=== PATIENT | male | born 1970 | race Two or more races ===

== ENCOUNTER 2023-04-09 05:00 | Emergency (ER) | payer BC ==
[2023-04-09] MEDS ORDERED: Oxymetazoline 0.05% Nasal Spray 30 ML Bottle NAS ONE (05:21)
[2023-04-09 06:02] LABS: BASOPHILS PERCENT AUTO 0.5 % (0.0-1.0); EOSINOPHILS PERCENT AUTO 0.3 % (0.0-6.0); HEMATOCRIT 32.4 % (42.0-52.0); HEMOGLOBIN 9.8 gm/dl (14.0-18.0); IMMATURE GRAN ABSOLUTE AUTO 0.34 K/mm3 (0.00-0.05); IMMATURE GRAN PERCENT AUTO 8.9 % (0.0-0.4); LYMPHOCYTES ABSOLUTE AUTO 2.4 K/mm3 (1.0-4.8); LYMPHOCYTES PERCENT AUTO 61.7 % (24.0-44.0); MEAN CORPUSCULAR HGB CONC 30.2 g/dl (32.0-36.0); MEAN CORPUSCULAR VOLUME 99.1 fl (83.0-99.0); MONOCYTES ABSOLUTE AUTO 0.2 K/mm3 (0.0-0.8); MONOCYTES PERCENT AUTO 6.3 % (0.0-8.0); NEUTROPHILS ABSOLUTE AUTO 0.9 K/mm3 (1.8-7.7); NEUTROPHILS PERCENT AUTO 22.3 % (41.0-71.0); NRBC ABSOLUTE 0.06 (0.00-0.02); NRBC PERCENT 1.6 % (0.0-0.2); PLATELET COUNT,PLT 42 K/mm3 (150-400); RED BLOOD CELL COUNT 3.27 M/mm3 (4.52-5.90); WHITE BLOOD CELL COUNT,WBC 3.84 K/mm3 (3.9-11.3)
[2023-04-09 06:26] LABS: INR 1.2; PROTHROMBIN TIME 12.7 SECONDS (9.7-12.0)
[2023-04-09 06:28] LABS: ALBUMIN 3.6 g/dl (3.4-5.0); ANION GAP 14.8 (5-15); BILIRUBIN TOTAL 0.6 mg/dL (0.2-1.0); BUN/CREATININE RATIO 17.1 (14-18); CALCIUM 8.7 mg/dL (8.5-10.1); CREATININE 0.7 mg/dL (0.7-1.3); EST CRCL DRUG DOSING (CG) 131.48 mL/min; POTASSIUM,K 3.8 mEq/L (3.5-5.1); PROTEIN TOTAL,TP 7.4 g/dl (6.4-8.2)
[2023-04-09 06:58] VITALS: BP 129/79; PULSE 89
[2023-04-09 07:38] LABS: SLIDE REVIEW ABNORMAL SMEAR
== END 2023-04-09 06:59 | disposition home or self-care (01) ==
LOC: JD.ED 05:00
DX: R04.0 Epistaxis (principal); D61.818 Other pancytopenia; Z91.048 Other nonmedicinal substance allergy status
CPT/HCPCS: 30901; 36415; 80053; 85025; 85610; 85730; 99283; A9270

== ENCOUNTER 2023-06-22 02:14 | Emergency (ER) | payer BC ==
[2023-06-22 02:32] VITALS: BP 139/82; PULSE 84
== END 2023-06-22 03:56 | disposition home or self-care (01) ==
LOC: JD.ED 02:14
DX: K06.8 Other specified disorders of gingiva and edentulous alveolar ridge (principal); D69.6 Thrombocytopenia, unspecified; C92.00 Acute myeloblastic leukemia, not having achieved remission; E11.9 Type 2 diabetes mellitus without complications; Z88.8 Allergy status to other drugs, medicaments and biological substances
CPT/HCPCS: 99283

== ENCOUNTER 2024-10-11 11:10 | Inpatient (IN) | payer BC, MEDICAID ==
[2024-10-11 11:56] LABS: HEMATOCRIT 33.8 % (42.0-52.0); MEAN CORPUSCULAR HEMOGLOBIN 31.4 pg (28.0-32.0); MEAN CORPUSCULAR HGB CONC 35.2 g/dl (32.0-36.0); MEAN PLATELET VOLUME 11.1 fl (9.4-12.4); NRBC ABSOLUTE 0.12 (0.00-0.02); NRBC PERCENT 0.6 % (0.0-0.2); PLATELET COUNT,PLT 81 K/mm3 (150-400); RED BLOOD CELL COUNT 3.79 M/mm3 (4.52-5.90); WHITE BLOOD CELL COUNT,WBC 19.79 K/mm3 (3.9-11.3)
[2024-10-11 12:01] LABS: HEMOGLOBIN 11.9 gm/dl (14.0-18.0); MEAN CORPUSCULAR VOLUME 89.2 fl (83.0-99.0)
[2024-10-11 12:15] LABS: INR 1.42; PROTHROMBIN TIME 14.7 SECONDS (9.7-12.0)
[2024-10-11 12:15] LABS: CORONAVIRUS COVID-19 NAA NEGATIVE (NEGATIVE); INFLUENZA A NAA NEGATIVE (NEGATIVE); RESPIRATORY SYNCYTIAL VIR NAA NEGATIVE (NEGATIVE)
[2024-10-11 12:21] LABS: A/G RATIO 0.4 (1-2); ALBUMIN 1.9 g/dl (3.4-5.0); ANION GAP 13.5 (5-15); BILIRUBIN TOTAL 2.3 mg/dL (0.2-1.0); BUN/CREATININE RATIO 12.2 (14-18); C-REACTIVE PROTEIN 21.67 mg/dL (<0.30); CREATININE 0.9 mg/dL (0.7-1.3); EST CRCL DRUG DOSING (CG) 92.71 mL/min; POTASSIUM,K 3.5 mEq/L (3.5-5.1); PROTEIN TOTAL,TP 6.6 g/dl (6.4-8.2)
[2024-10-11 12:22] LABS: BAND PERCENT MAN 0 % (0-10); BASOPHILS PERCENT MAN 0 (0.2-1.2); EOSINOPHILS PERCENT MAN 0 % (0.8-7.0); LYMPHOCYTES % ATYPICAL MANUAL 3 %; LYMPHOCYTES PERCENT MAN 0 % (20-40); MONOCYTES PERCENT MAN 3 % (2-10)
[2024-10-11 12:26] LABS: LACTIC ACID 1.9 mmol/L (0.4-2.0)
[2024-10-11 12:31] LABS: ANISOCYTOSIS 1+ SLIGHT
[2024-10-11 12:32] LABS: MICROCYTOSIS FEW; POLYCHROMASIA FEW
[2024-10-11 12:33] LABS: TOXIC GRANULATION 1+ SLIGHT
[2024-10-11 12:34] LABS: PLATELET COUNT ESTIMATE DECREASED
[2024-10-11] MEDS: Piperacillin/Tazobactam 4.5 GM in Sodium Chloride 0.9% 100 ML IV ONE (13:11)
[2024-10-11] MEDS: Sodium Chloride 0.9% 1,000 ML IV STA ×2 (13:11→15:51)
[2024-10-11] MEDS: Sodium Chloride 0.9% 10 ML Syringe FLUSH PRN (14:36)
[2024-10-11 15:37] LABS: SODIUM,URINE RANDOM 60 mEq/L (40-220)
[2024-10-11 16:24] LABS: PHOSPHORUS 3.2 mg/dL (2.6-4.7)
[2024-10-11 16:56] LABS: MAGNESIUM 0.9 mg/dL (1.8-2.4)
[2024-10-11] MEDS: VANCOmycin 1.5 GM/300 ML 1.5 GM in Premix Bag 1 BAG IV ONE (16:56)
[2024-10-11 17:58] LABS: OSMOLALITY,URINE 337 mosm/kg (400-1100)
[2024-10-11 18:10] LABS: APPEARANCE,URINE CLEAR (Clear); BILIRUBIN,URINE NEGATIVE (Negative); COLOR,URINE YELLOW (Yellow); GLUCOSE,URINE NEGATIVE (Negative); KETONES,URINE NEGATIVE (Negative); LEUKOCYTE ESTERASE,URINE NEGATIVE (Negative); NITRITE,URINE NEGATIVE (Negative); OCCULT BLOOD,URINE TRACE-LYSED (Negative); PROTEIN,URINE 1+ (Negative)
[2024-10-11] MEDS: Magnesium Sulf/Wat 4 GM/50 mL 4 GM in Premix Bag 1 BAG IV ONE (18:24)
[2024-10-11] MEDS: cefTRIAXone 2 GM Vial IVPUSH SCH (18:24)
[2024-10-11 18:43] LABS: BACTERIA,URINE MODERATE /hpf (FEW); EPITHELIAL CELLS,URINE 0-5 /hpf (0-5); MUCUS,URINE FEW /hpf (FEW); RBC,URINE 0-5 /hpf (0-5); WBC,URINE 0-5 /hpf (0-5)
[2024-10-11 18:44] LABS: AMORPHOUS SEDIMENT,URINE FEW /hpf (NOT SEEN)
[2024-10-11] MEDS: Sodium Chloride 0.9% 1,000 ML IV SCH (18:49)
[2024-10-11] MEDS: 50% Dextrose in Water 50 ML Syringe IVPUSH PRN (20:12)
[2024-10-11] MEDS: Dextrose 5%-0.45% NaCl 1,000 ML IV SCH (20:13)
[2024-10-11] MEDS: Insulin Lispro 100 Unit/ML 3 ML KwikPen SUBCUT SCH (20:14)
[2024-10-12] MEDS: VANCOmycin 1 GM in Sodium Chloride 0.9% 250 ML IV SCH (03:06)
[2024-10-12 05:35] LABS: BASOPHILS PERCENT AUTO 0.1 % (0.0-1.0); HEMATOCRIT 29.8 % (42.0-52.0); IMMATURE GRAN ABSOLUTE AUTO 0.38 K/mm3 (0.00-0.05); IMMATURE GRAN PERCENT AUTO 2.8 % (0.0-0.4); LYMPHOCYTES ABSOLUTE AUTO 0.8 K/mm3 (1.0-4.8); LYMPHOCYTES PERCENT AUTO 6.2 % (24.0-44.0); MEAN CORPUSCULAR HEMOGLOBIN 31.1 pg (28.0-32.0); MEAN CORPUSCULAR HGB CONC 34.6 g/dl (32.0-36.0); MEAN PLATELET VOLUME 9.8 fl (9.4-12.4); MONOCYTES ABSOLUTE AUTO 0.6 K/mm3 (0.0-0.8); MONOCYTES PERCENT AUTO 4.4 % (0.0-8.0); NEUTROPHILS ABSOLUTE AUTO 11.6 K/mm3 (1.8-7.7); NEUTROPHILS PERCENT AUTO 86.5 % (41.0-71.0); NRBC ABSOLUTE 0.05 (0.00-0.02); NRBC PERCENT 0.4 % (0.0-0.2); PLATELET COUNT,PLT 60 K/mm3 (150-400); RED BLOOD CELL COUNT 3.31 M/mm3 (4.52-5.90); WHITE BLOOD CELL COUNT,WBC 13.42 K/mm3 (3.9-11.3)
[2024-10-12 05:43] LABS: HEMOGLOBIN 10.3 gm/dl (14.0-18.0)
[2024-10-12 05:55] LABS: A/G RATIO 0.3 (1-2); ALANINE AMINOTRANSFERASE,ALT 52 U/L (16-63); ALBUMIN 1.3 g/dl (3.4-5.0); ALKALINE PHOSPHATASE 238 U/L (46-116); ANION GAP 14.9 (5-15); ASPARTATE AMNIOTRANSFERASE,AST 30 U/L (15-37); BILIRUBIN TOTAL 1.8 mg/dL (0.2-1.0); BLOOD UREA NITROGEN,BUN 7 mg/dL (7-18); BUN/CREATININE RATIO 8.8 (14-18); CALCIUM 6.9 mg/dL (8.5-10.1); CARBON DIOXIDE,CO2 21 mEq/L (21-32); CHLORIDE,CL 92 mEq/L (98-107); CREATININE 0.8 mg/dL (0.7-1.3); EST CRCL DRUG DOSING (CG) 103.96 mL/min; ESTIMATED GFR 105 mL/min (>60); GLUCOSE RANDOM 358 mg/dL (70-99); POTASSIUM,K 2.9 mEq/L (3.5-5.1); PROTEIN TOTAL,TP 5.3 g/dl (6.4-8.2); SODIUM,NA 125 mEq/L (136-145)
[2024-10-12 06:05] LABS: SLIDE REVIEW ABNORMAL SMEAR
[2024-10-12 06:21] LABS: C-REACTIVE PROTEIN > 25.00 mg/dL (<0.30)
[2024-10-12] MEDS: Magnesium Sulfat/D5W 1GM/100ML 1 GM in Premix Bag 1 BAG IV ONE (06:44)
[2024-10-12] MEDS: Dextrose 5%-0.9% NaCl with KCl 1,000 ML IV SCH (06:46)
[2024-10-12] MEDS: Thiamine 200 MG/2 ML MDV IVPUSH SCH (07:15)
[2024-10-12] MEDS: Potassium Chloride 20 MEQ Tab.ER PO SCH (07:26)
[2024-10-12] MEDS: Acetaminophen 325 MG Tab PO PRN (07:26)
[2024-10-12] MEDS: Ondansetron 4 MG/2 ML SDV IV PRN (07:26)
[2024-10-12] MEDS: Potassium Chloride 10 MEQ in Premix Bag 1 BAG IV SCH (07:45)
[2024-10-12] MEDS: Magnesium Sulf/Wat 2 GM/50 mL 2 GM in Premix Bag 1 BAG IV ONE (08:45)
[2024-10-12] MEDS: predniSONE 10 MG Tab PO SCH ×2 (10:07→20:30)
[2024-10-12] MEDS ORDERED: Albuterol/Ipratropium 3.0-0.5 MG/3 ML Neb Soln NEB PRN (10:13)
[2024-10-12] MEDS ORDERED: oxyCODONE 5 MG Tab PO PRN (10:14)
[2024-10-12 11:00] LABS: TSH 0.076 uIU/mL (0.358-3.74); VITAMIN D,25-HYDROXY 25.6 ng/ml (30.0-100.0)
[2024-10-12] MEDS: predniSONE 5 MG Tab PO ONE (12:19)
[2024-10-12] MEDS: Cholecalciferol (Vitamin D3) 5,000 UNIT Cap PO SCH (12:19)
[2024-10-12 12:22] LABS: FOLIC ACID 6.1 ng/mL (8.6-58.9)
[2024-10-12] MEDS ORDERED: Carboxymethylcellulose Sodium 1% Ophth Gel 15 ML Bottle EYEBOTH PRN (12:25)
[2024-10-12] MEDS: Dexamethasone 0.1% Ophth Soln 5 ML Bottle EYEBOTH SCH (13:11)
[2024-10-12] MEDS: Folic Acid 50 MG/10 ML MDV IV ONE (13:12)
[2024-10-12] MEDS: NS + KCl 20mEq/L 1,000 ML IV SCH (13:27)
[2024-10-12] MEDS: VANCOmycin 1.25 GM/250 ML 1.25 GM in Premix Bag 1 BAG IV SCH (14:17)
[2024-10-13 04:29] LABS: BASOPHILS PERCENT AUTO 0.1 % (0.0-1.0); HEMATOCRIT 26.9 % (42.0-52.0); IMMATURE GRAN PERCENT AUTO 1.9 % (0.0-0.4); LYMPHOCYTES ABSOLUTE AUTO 0.6 K/mm3 (1.0-4.8); LYMPHOCYTES PERCENT AUTO 5.2 % (24.0-44.0); MEAN CORPUSCULAR HEMOGLOBIN 30.5 pg (28.0-32.0); MEAN CORPUSCULAR HGB CONC 33.5 g/dl (32.0-36.0); MEAN CORPUSCULAR VOLUME 91.2 fl (83.0-99.0); MEAN PLATELET VOLUME 11.4 fl (9.4-12.4); MONOCYTES ABSOLUTE AUTO 0.4 K/mm3 (0.0-0.8); MONOCYTES PERCENT AUTO 3.6 % (0.0-8.0); NEUTROPHILS ABSOLUTE AUTO 9.5 K/mm3 (1.8-7.7); NEUTROPHILS PERCENT AUTO 89.2 % (41.0-71.0); NRBC ABSOLUTE 0.02 (0.00-0.02); NRBC PERCENT 0.2 % (0.0-0.2); PLATELET COUNT,PLT 59 K/mm3 (150-400); RED BLOOD CELL COUNT 2.95 M/mm3 (4.52-5.90); WHITE BLOOD CELL COUNT,WBC 10.65 K/mm3 (3.9-11.3)
[2024-10-13 05:14] LABS: A/G RATIO 0.3 (1-2); ALBUMIN 1.2 g/dl (3.4-5.0); BILIRUBIN TOTAL 1.4 mg/dL (0.2-1.0); BUN/CREATININE RATIO 26.7 (14-18); C-REACTIVE PROTEIN 23.86 mg/dL (<0.30); CALCIUM 7.6 mg/dL (8.5-10.1); CREATININE 0.6 mg/dL (0.7-1.3); EST CRCL DRUG DOSING (CG) 137.71 mL/min; MAGNESIUM 1.9 mg/dL (1.8-2.4); PHOSPHORUS 1.8 mg/dL (2.6-4.7); PROTEIN TOTAL,TP 5.2 g/dl (6.4-8.2); SLIDE REVIEW ABNORMAL SMEAR
[2024-10-13 05:41] LABS: ANION GAP 14.7 (5-15)
[2024-10-13 05:43] LABS: POTASSIUM,K 4.7 mEq/L (3.5-5.1)
[2024-10-13] MEDS: Pantoprazole 40 MG Tab.CR PO SCH (05:50)
[2024-10-13] MEDS: Insulin Lispro 100 Unit/ML 3 ML KwikPen SUBCUT ONE (08:10)
[2024-10-13] MEDS: Insulin Glargine,Human Rec. Analog 100 Units/ML 3 ML Pen SUBCUT SCH (08:12)
[2024-10-13] MEDS: Sodium Phosphate 30 MMOLE in Sodium Chloride 0.9% 250 ML IV ONE (08:13)
[2024-10-13] MEDS: Folic Acid 1 MG Tab PO SCH (08:15)
[2024-10-13] MEDS ORDERED: Potassium Phosphates 30 MMOLE in Sodium Chloride 0.9% 500 ML IV ONE (08:30)
[2024-10-13] MEDS: Sodium Chloride 0.9% 1,000 ML IV SCH (10:54)
[2024-10-13] MEDS: VANCOmycin 1.25 GM/250 ML 1.25 GM in Premix Bag 1 BAG IV SCH (10:54)
[2024-10-13] MEDS: Sodium Chloride 0.65% Nasal Spray 45 ML Bottle NASBOTH PRN (10:54)
[2024-10-13] MEDS: Insulin Lispro 100 Unit/ML 3 ML KwikPen SUBCUT SCH (10:55)
[2024-10-13] MEDS ORDERED: predniSONE 5 MG Tab PO ONE (11:54)
[2024-10-14 04:41] LABS: HEMATOCRIT 22.8 % (42.0-52.0); HEMOGLOBIN 7.7 gm/dl (14.0-18.0); IMMATURE GRAN ABSOLUTE AUTO 0.14 K/mm3 (0.00-0.05); IMMATURE GRAN PERCENT AUTO 1.8 % (0.0-0.4); LYMPHOCYTES ABSOLUTE AUTO 0.6 K/mm3 (1.0-4.8); LYMPHOCYTES PERCENT AUTO 8.4 % (24.0-44.0); MEAN CORPUSCULAR HEMOGLOBIN 30.7 pg (28.0-32.0); MEAN CORPUSCULAR HGB CONC 33.8 g/dl (32.0-36.0); MEAN CORPUSCULAR VOLUME 90.8 fl (83.0-99.0); MEAN PLATELET VOLUME 10.7 fl (9.4-12.4); MONOCYTES ABSOLUTE AUTO 0.4 K/mm3 (0.0-0.8); MONOCYTES PERCENT AUTO 4.9 % (0.0-8.0); NEUTROPHILS ABSOLUTE AUTO 6.4 K/mm3 (1.8-7.7); NEUTROPHILS PERCENT AUTO 84.9 % (41.0-71.0); NRBC ABSOLUTE 0.03 (0.00-0.02); NRBC PERCENT 0.4 % (0.0-0.2); PLATELET COUNT,PLT 53 K/mm3 (150-400); RED BLOOD CELL COUNT 2.51 M/mm3 (4.52-5.90); WHITE BLOOD CELL COUNT,WBC 7.59 K/mm3 (3.9-11.3)
[2024-10-14 05:28] LABS: A/G RATIO 0.3 (1-2); ALBUMIN 1.1 g/dl (3.4-5.0); ANION GAP 14.7 (5-15); BILIRUBIN TOTAL 0.9 mg/dL (0.2-1.0); C-REACTIVE PROTEIN 6.77 mg/dL (<0.30); CALCIUM 7.2 mg/dL (8.5-10.1); CREATININE 0.6 mg/dL (0.7-1.3); EST CRCL DRUG DOSING (CG) 137.34 mL/min; MAGNESIUM 1.3 mg/dL (1.8-2.4); POTASSIUM,K 3.7 mEq/L (3.5-5.1); PROTEIN TOTAL,TP 4.7 g/dl (6.4-8.2)
[2024-10-14] MEDS: POSACONAZOLE PO SCH (06:19)
[2024-10-14] MEDS: Magnesium Sulfat/D5W 1GM/100ML 1 GM in Premix Bag 1 BAG IV SCH (06:48)
[2024-10-14 07:21] LABS: SLIDE REVIEW ABNORMAL SMEAR
[2024-10-14] MEDS ORDERED: Magnesium Sulf/Wat 4 GM/50 mL 4 GM in Premix Bag 1 BAG IV ONE (08:00)
[2024-10-14] MEDS: Insulin Glargine,Human Rec. Analog 100 Units/ML 3 ML Pen SUBCUT SCH (08:13)
[2024-10-14] MEDS ORDERED: SODIUM CHLORIDE IV ONE (09:00)
[2024-10-14] MEDS ORDERED: POTASSIUM PHOSPHATES IV ONE (09:00)
[2024-10-14] MEDS: Magnesium Sulf/Wat 2 GM/50 mL 2 GM in Premix Bag 1 BAG IV ONE (12:48)
[2024-10-14] MEDS: Potassium Phosphates 30 MMOLE in Sodium Chloride 0.9% 500 ML IV SCH (13:38)
[2024-10-14] MEDS: Insulin Lispro 100 Unit/ML 3 ML KwikPen SUBCUT SCH (17:31)
[2024-10-14] MEDS: Thiamine 100 MG Tab PO SCH (21:00)
[2024-10-14] MEDS: Tacrolimus 0.5 MG Cap PO SCH (21:01)
[2024-10-15 04:47] LABS: RED BLOOD CELL COUNT 2.94 M/mm3 (4.52-5.90); WHITE BLOOD CELL COUNT,WBC 11.67 K/mm3 (3.9-11.3)
[2024-10-15 04:48] LABS: BASOPHILS PERCENT AUTO 0.2 % (0.0-1.0); IMMATURE GRAN ABSOLUTE AUTO 0.33 K/mm3 (0.00-0.05); IMMATURE GRAN PERCENT AUTO 2.8 % (0.0-0.4); LYMPHOCYTES ABSOLUTE AUTO 1.3 K/mm3 (1.0-4.8); LYMPHOCYTES PERCENT AUTO 11.1 % (24.0-44.0); MEAN CORPUSCULAR HEMOGLOBIN 30.6 pg (28.0-32.0); MEAN CORPUSCULAR HGB CONC 34.6 g/dl (32.0-36.0); MEAN CORPUSCULAR VOLUME 88.4 fl (83.0-99.0); MEAN PLATELET VOLUME 10.2 fl (9.4-12.4); MONOCYTES ABSOLUTE AUTO 0.5 K/mm3 (0.0-0.8); MONOCYTES PERCENT AUTO 4.6 % (0.0-8.0); NEUTROPHILS ABSOLUTE AUTO 9.5 K/mm3 (1.8-7.7); NEUTROPHILS PERCENT AUTO 81.3 % (41.0-71.0); NRBC ABSOLUTE 0.11 (0.00-0.02); NRBC PERCENT 0.9 % (0.0-0.2); PLATELET COUNT,PLT 69 K/mm3 (150-400)
[2024-10-15 05:21] LABS: A/G RATIO 0.4 (1-2); ALBUMIN 1.5 g/dl (3.4-5.0); ANION GAP 12.8 (5-15); BILIRUBIN TOTAL 1.3 mg/dL (0.2-1.0); C-REACTIVE PROTEIN 5.53 mg/dL (<0.30); CALCIUM 7.7 mg/dL (8.5-10.1); CREATININE 0.5 mg/dL (0.7-1.3); EST CRCL DRUG DOSING (CG) 166.33 mL/min; MAGNESIUM 1.4 mg/dL (1.8-2.4); PHOSPHORUS 2.4 mg/dL (2.6-4.7); POTASSIUM,K 3.8 mEq/L (3.5-5.1); PROTEIN TOTAL,TP 5.4 g/dl (6.4-8.2)
[2024-10-15 05:46] LABS: TACROLIMUS (FK506) <2.0 ng/mL
[2024-10-15 07:40] LABS: SLIDE REVIEW ABNORMAL SMEAR
[2024-10-15] MEDS: Phosphorus #1 250 MG Tab PO SCH (08:03)
[2024-10-15] MEDS: Sodium Chloride 0.9% 1,000 ML IV SCH (08:05)
[2024-10-15] MEDS: Magnesium Sulf/Wat 4 GM/50 mL 4 GM in Premix Bag 1 BAG IV ONE ×2 (08:05→10:59)
[2024-10-15] MEDS: Insulin Glargine,Human Rec. Analog 100 Units/ML 3 ML Pen SUBCUT SCH (09:38)
[2024-10-15] MEDS ORDERED: Hydrocortisone Sodium Succinate 100 MG/2 ML SDV IVPUSH SCH (14:30)
[2024-10-15] MEDS: Hydrocortisone Sodium Succinate 100 MG/2 ML SDV IVPUSH SCH (14:56)
[2024-10-15] MEDS: Potassium Phosphates 30 MMOLE in Sodium Chloride 0.9% 500 ML IV ONE (15:00)
[2024-10-15] MEDS: Melatonin 3 MG Tab PO PRN (21:25)
[2024-10-16 04:38] LABS: BASOPHILS PERCENT AUTO 0.2 % (0.0-1.0); HEMATOCRIT 27.1 % (42.0-52.0); HEMOGLOBIN 9.4 gm/dl (14.0-18.0); IMMATURE GRAN ABSOLUTE AUTO 0.45 K/mm3 (0.00-0.05); IMMATURE GRAN PERCENT AUTO 5.1 % (0.0-0.4); LYMPHOCYTES ABSOLUTE AUTO 0.8 K/mm3 (1.0-4.8); LYMPHOCYTES PERCENT AUTO 8.7 % (24.0-44.0); MEAN CORPUSCULAR HEMOGLOBIN 30.8 pg (28.0-32.0); MEAN CORPUSCULAR HGB CONC 34.7 g/dl (32.0-36.0); MEAN CORPUSCULAR VOLUME 88.9 fl (83.0-99.0); MEAN PLATELET VOLUME 10.1 fl (9.4-12.4); MONOCYTES ABSOLUTE AUTO 0.4 K/mm3 (0.0-0.8); MONOCYTES PERCENT AUTO 4.3 % (0.0-8.0); NEUTROPHILS ABSOLUTE AUTO 7.3 K/mm3 (1.8-7.7); NEUTROPHILS PERCENT AUTO 81.7 % (41.0-71.0); NRBC ABSOLUTE 0.13 (0.00-0.02); NRBC PERCENT 1.5 % (0.0-0.2); PLATELET COUNT,PLT 65 K/mm3 (150-400); RED BLOOD CELL COUNT 3.05 M/mm3 (4.52-5.90); WHITE BLOOD CELL COUNT,WBC 8.88 K/mm3 (3.9-11.3)
[2024-10-16 05:08] LABS: A/G RATIO 0.4 (1-2); ALBUMIN 1.5 g/dl (3.4-5.0); ANION GAP 9.9 (5-15); BILIRUBIN TOTAL 0.9 mg/dL (0.2-1.0); C-REACTIVE PROTEIN 5.15 mg/dL (<0.30); CALCIUM 7.8 mg/dL (8.5-10.1); CREATININE 0.5 mg/dL (0.7-1.3); EST CRCL DRUG DOSING (CG) 166.33 mL/min; PHOSPHORUS 3.2 mg/dL (2.6-4.7); POTASSIUM,K 2.9 mEq/L (3.5-5.1); PROTEIN TOTAL,TP 5.4 g/dl (6.4-8.2)
[2024-10-16] MEDS: predniSONE 10 MG Tab PO SCH (06:37)
[2024-10-16 06:46] LABS: SLIDE REVIEW ABNORMAL SMEAR
[2024-10-16] MEDS: Potassium Chloride 10 MEQ in Premix Bag 1 BAG IV SCH (06:52)
[2024-10-16] MEDS: Potassium Chloride 20 MEQ Tab.ER PO SCH (09:04)
[2024-10-16 15:00] LABS: ANION GAP 12.7 (5-15); CALCIUM 7.7 mg/dL (8.5-10.1); CREATININE 0.6 mg/dL (0.7-1.3); EST CRCL DRUG DOSING (CG) 145.32 mL/min; POTASSIUM,K 3.7 mEq/L (3.5-5.1)
[2024-10-16] MEDS: Hydrocortisone 10 MG Tab PO SCH (16:57)
[2024-10-17 05:52] LABS: BASOPHILS PERCENT AUTO 0.3 % (0.0-1.0); EOSINOPHILS PERCENT AUTO 0.1 % (0.0-6.0); HEMATOCRIT 26.1 % (42.0-52.0); IMMATURE GRAN PERCENT AUTO 5.9 % (0.0-0.4); LYMPHOCYTES ABSOLUTE AUTO 1.2 K/mm3 (1.0-4.8); LYMPHOCYTES PERCENT AUTO 10.2 % (24.0-44.0); MEAN CORPUSCULAR HEMOGLOBIN 30.3 pg (28.0-32.0); MEAN CORPUSCULAR HGB CONC 34.5 g/dl (32.0-36.0); MEAN CORPUSCULAR VOLUME 87.9 fl (83.0-99.0); MEAN PLATELET VOLUME 10.4 fl (9.4-12.4); MONOCYTES ABSOLUTE AUTO 0.5 K/mm3 (0.0-0.8); MONOCYTES PERCENT AUTO 3.9 % (0.0-8.0); NEUTROPHILS ABSOLUTE AUTO 9.4 K/mm3 (1.8-7.7); NEUTROPHILS PERCENT AUTO 79.6 % (41.0-71.0); NRBC ABSOLUTE 0.35 (0.00-0.02); PLATELET COUNT,PLT 73 K/mm3 (150-400); RED BLOOD CELL COUNT 2.97 M/mm3 (4.52-5.90); WHITE BLOOD CELL COUNT,WBC 11.85 K/mm3 (3.9-11.3)
[2024-10-17 06:15] LABS: A/G RATIO 0.4 (1-2); ALBUMIN 1.6 g/dl (3.4-5.0); C-REACTIVE PROTEIN 1.79 mg/dL (<0.30); CALCIUM 7.8 mg/dL (8.5-10.1); CREATININE 0.5 mg/dL (0.7-1.3); EST CRCL DRUG DOSING (CG) 164.92 mL/min; MAGNESIUM 1.2 mg/dL (1.8-2.4); PHOSPHORUS 2.3 mg/dL (2.6-4.7); PROTEIN TOTAL,TP 5.2 g/dl (6.4-8.2)
[2024-10-17 06:34] LABS: SLIDE REVIEW ABNORMAL SMEAR
[2024-10-17] MEDS ORDERED: Sennosides/Docusate Sodium 50-8.6 MG Tab PO PRN (09:50)
[2024-10-17] MEDS: Magnesium Sulf/Wat 4 GM/50 mL 4 GM in Premix Bag 1 BAG IV ONE (09:54)
[2024-10-17] MEDS: Potassium Chloride 20 MEQ Tab.ER PO ONE (09:54)
[2024-10-17] MEDS: Potassium Phosphates 30 MMOLE in Sodium Chloride 0.9% 500 ML IV ONE (09:54)
[2024-10-17] MEDS: Alteplase 2 MG Vial IVPUSH ONE (11:53)
[2024-10-18 05:38] LABS: BASOPHILS PERCENT AUTO 0.3 % (0.0-1.0); EOSINOPHILS PERCENT AUTO 0.1 % (0.0-6.0); HEMATOCRIT 26.8 % (42.0-52.0); HEMOGLOBIN 9.2 gm/dl (14.0-18.0); IMMATURE GRAN ABSOLUTE AUTO 0.72 K/mm3 (0.00-0.05); IMMATURE GRAN PERCENT AUTO 6.1 % (0.0-0.4); LYMPHOCYTES ABSOLUTE AUTO 0.9 K/mm3 (1.0-4.8); LYMPHOCYTES PERCENT AUTO 7.9 % (24.0-44.0); MEAN CORPUSCULAR HEMOGLOBIN 30.8 pg (28.0-32.0); MEAN CORPUSCULAR HGB CONC 34.3 g/dl (32.0-36.0); MEAN CORPUSCULAR VOLUME 89.6 fl (83.0-99.0); MEAN PLATELET VOLUME 11.2 fl (9.4-12.4); MONOCYTES ABSOLUTE AUTO 0.4 K/mm3 (0.0-0.8); MONOCYTES PERCENT AUTO 3.4 % (0.0-8.0); NEUTROPHILS ABSOLUTE AUTO 9.6 K/mm3 (1.8-7.7); NEUTROPHILS PERCENT AUTO 82.2 % (41.0-71.0); NRBC ABSOLUTE 0.37 (0.00-0.02); NRBC PERCENT 3.2 % (0.0-0.2); PLATELET COUNT,PLT 66 K/mm3 (150-400); RED BLOOD CELL COUNT 2.99 M/mm3 (4.52-5.90); WHITE BLOOD CELL COUNT,WBC 11.71 K/mm3 (3.9-11.3)
[2024-10-18 05:56] LABS: A/G RATIO 0.4 (1-2); ALBUMIN 1.5 g/dl (3.4-5.0); ANION GAP 10.1 (5-15); BILIRUBIN TOTAL 1.1 mg/dL (0.2-1.0); C-REACTIVE PROTEIN 4.15 mg/dL (<0.30); CALCIUM 7.7 mg/dL (8.5-10.1); CREATININE 0.5 mg/dL (0.7-1.3); EST CRCL DRUG DOSING (CG) 165.14 mL/min; MAGNESIUM 1.6 mg/dL (1.8-2.4); PHOSPHORUS 2.5 mg/dL (2.6-4.7); POTASSIUM,K 3.1 mEq/L (3.5-5.1); PROTEIN TOTAL,TP 5.1 g/dl (6.4-8.2)
[2024-10-18 06:19] LABS: SLIDE REVIEW ABNORMAL SMEAR
[2024-10-18] MEDS: Magnesium Sulf/Wat 4 GM/50 mL 4 GM in Premix Bag 1 BAG IV ONE (08:58)
[2024-10-18] MEDS ORDERED: Potassium Phosphates 30 MMOLE in Sodium Chloride 0.9% 500 ML IV SCH (09:00)
[2024-10-18] MEDS: Potassium Phosphates 30 MMOLE in Sodium Chloride 0.9% 500 ML IV ONE (10:14)
[2024-10-18] MEDS ORDERED: Potassium Chloride 20 MEQ Tab.ER PO SCH (12:00)
[2024-10-19 05:44] LABS: BASOPHILS PERCENT AUTO 0.2 % (0.0-1.0); HEMATOCRIT 26.8 % (42.0-52.0); HEMOGLOBIN 9.2 gm/dl (14.0-18.0); IMMATURE GRAN ABSOLUTE AUTO 0.47 K/mm3 (0.00-0.05); LYMPHOCYTES ABSOLUTE AUTO 0.8 K/mm3 (1.0-4.8); LYMPHOCYTES PERCENT AUTO 6.4 % (24.0-44.0); MEAN CORPUSCULAR HEMOGLOBIN 31.4 pg (28.0-32.0); MEAN CORPUSCULAR HGB CONC 34.3 g/dl (32.0-36.0); MEAN CORPUSCULAR VOLUME 91.5 fl (83.0-99.0); MEAN PLATELET VOLUME 11.4 fl (9.4-12.4); MONOCYTES ABSOLUTE AUTO 0.3 K/mm3 (0.0-0.8); MONOCYTES PERCENT AUTO 2.8 % (0.0-8.0); NEUTROPHILS ABSOLUTE AUTO 10.2 K/mm3 (1.8-7.7); NEUTROPHILS PERCENT AUTO 86.6 % (41.0-71.0); NRBC ABSOLUTE 0.21 (0.00-0.02); NRBC PERCENT 1.8 % (0.0-0.2); PLATELET COUNT,PLT 55 K/mm3 (150-400); RED BLOOD CELL COUNT 2.93 M/mm3 (4.52-5.90); WHITE BLOOD CELL COUNT,WBC 11.81 K/mm3 (3.9-11.3)
[2024-10-19 06:10] LABS: A/G RATIO 0.4 (1-2); ALBUMIN 1.5 g/dl (3.4-5.0); ANION GAP 10.2 (5-15); BILIRUBIN TOTAL 1.2 mg/dL (0.2-1.0); BUN/CREATININE RATIO 32.5 (14-18); C-REACTIVE PROTEIN 6.46 mg/dL (<0.30); CALCIUM 7.7 mg/dL (8.5-10.1); CREATININE 0.4 mg/dL (0.7-1.3); EST CRCL DRUG DOSING (CG) 207.91 mL/min; MAGNESIUM 1.6 mg/dL (1.8-2.4); PHOSPHORUS 2.2 mg/dL (2.6-4.7); POTASSIUM,K 3.2 mEq/L (3.5-5.1)
[2024-10-19 07:48] LABS: SLIDE REVIEW ABNORMAL SMEAR
[2024-10-19] MEDS: Magnesium Sulf/Wat 4 GM/50 mL 4 GM in Premix Bag 1 BAG IV ONE (08:57)
[2024-10-19] MEDS: Potassium Chloride 20 MEQ Tab.ER PO SCH (08:57)
[2024-10-19] MEDS: Phosphorus #1 250 MG Tab PO SCH (08:57)
[2024-10-19] MEDS: Sodium Phosphate 30 MMOLE in Sodium Chloride 0.9% 250 ML IV ONE (09:09)
[2024-10-19] MEDS: Magnesium Sulf/Wat 2 GM/50 mL 2 GM in Premix Bag 1 BAG IV ONE (13:19)
[2024-10-20] MEDS: Magnesium Sulf/Wat 4 GM/50 mL 4 GM in Premix Bag 1 BAG IV ONE ×2 (08:45→10:59)
[2024-10-20] MEDS ORDERED: Loperamide 2 MG Cap PO PRN (11:01)
[2024-10-20 11:32] LABS: BASOPHILS PERCENT AUTO 0.1 % (0.0-1.0); HEMATOCRIT 28.1 % (42.0-52.0); HEMOGLOBIN 9.3 gm/dl (14.0-18.0); IMMATURE GRAN ABSOLUTE AUTO 0.46 K/mm3 (0.00-0.05); IMMATURE GRAN PERCENT AUTO 2.6 % (0.0-0.4); LYMPHOCYTES ABSOLUTE AUTO 0.8 K/mm3 (1.0-4.8); LYMPHOCYTES PERCENT AUTO 4.6 % (24.0-44.0); MEAN CORPUSCULAR HEMOGLOBIN 30.7 pg (28.0-32.0); MEAN CORPUSCULAR HGB CONC 33.1 g/dl (32.0-36.0); MEAN CORPUSCULAR VOLUME 92.7 fl (83.0-99.0); MEAN PLATELET VOLUME 9.9 fl (9.4-12.4); MONOCYTES ABSOLUTE AUTO 0.3 K/mm3 (0.0-0.8); MONOCYTES PERCENT AUTO 1.5 % (0.0-8.0); NEUTROPHILS ABSOLUTE AUTO 16.2 K/mm3 (1.8-7.7); NEUTROPHILS PERCENT AUTO 91.2 % (41.0-71.0); NRBC ABSOLUTE 0.19 (0.00-0.02); NRBC PERCENT 1.1 % (0.0-0.2); PLATELET COUNT,PLT 62 K/mm3 (150-400); RED BLOOD CELL COUNT 3.03 M/mm3 (4.52-5.90); WHITE BLOOD CELL COUNT,WBC 17.78 K/mm3 (3.9-11.3)
[2024-10-20 11:54] LABS: ANION GAP 12.5 (5-15); BUN/CREATININE RATIO 18.3 (14-18); CALCIUM 7.6 mg/dL (8.5-10.1); CREATININE 0.6 mg/dL (0.7-1.3); EST CRCL DRUG DOSING (CG) 138.34 mL/min; PHOSPHORUS 2.1 mg/dL (2.6-4.7); POTASSIUM,K 3.5 mEq/L (3.5-5.1)
[2024-10-20 12:00] LABS: SLIDE REVIEW ABNORMAL SMEAR
[2024-10-20] MEDS: Loperamide 2 MG Cap PO ONE (12:28)
[2024-10-20] MEDS: Sulfamethoxazole/Trimethoprim 800-160 MG Tab PO SCH (14:09)
[2024-10-20] MEDS: Penicillin V Potassium 500 MG Tab PO SCH (14:09)
[2024-10-20] MEDS: Potassium Chloride 10 MEQ in Premix Bag 1 BAG IV SCH (14:10)
[2024-10-20] MEDS: Sodium Phosphate 30 MMOLE in Sodium Chloride 0.9% 250 ML IV ONE (15:04)
[2024-10-20 15:54] LABS: APPEARANCE,URINE CLEAR (Clear); BILIRUBIN,URINE NEGATIVE (Negative); COLOR,URINE YELLOW (Yellow); GLUCOSE,URINE 2+ (Negative); KETONES,URINE NEGATIVE (Negative); LEUKOCYTE ESTERASE,URINE NEGATIVE (Negative); NITRITE,URINE NEGATIVE (Negative); OCCULT BLOOD,URINE NEGATIVE (Negative); PH,URINE 6.5 (5.0-8.0); PROTEIN,URINE NEGATIVE (Negative)
[2024-10-20] MEDS: Cefepime 2 GM Vial IVPUSH SCH (16:06)
[2024-10-20] MEDS: Sodium Chloride 0.9% 1,000 ML IV SCH (16:24)
[2024-10-20 17:31] VITALS: BP 98/61; PULSE 74
[2024-10-22 06:46] LABS: TACROLIMUS (FK506) 2.6 ng/mL
== END 2024-10-20 16:42 | DRG 871 ==
LOC: JD.ED 11:10 → JD.ICU 15:00
PROVIDERS: ADMIT Family Medicine; ATTEND Family Medicine
DX: A41.9 Sepsis, unspecified organism (principal); J18.9 Pneumonia, unspecified organism; C92.A1 Acute myeloid leukemia with multilineage dysplasia, in remission; D89.811 Chronic graft-versus-host disease; E87.1 Hypo-osmolality and hyponatremia; D84.9 Immunodeficiency, unspecified; E27.3 Drug-induced adrenocortical insufficiency; E87.6 Hypokalemia; R65.20 Severe sepsis without septic shock; D69.6 Thrombocytopenia, unspecified; D63.8 Anemia in other chronic diseases classified elsewhere; E16.2 Hypoglycemia, unspecified; T38.0X5A Adverse effect of glucocorticoids and synthetic analogues, initial encounter; E53.8 Deficiency of other specified B group vitamins; E55.9 Vitamin D deficiency, unspecified; E05.90 Thyrotoxicosis, unspecified without thyrotoxic crisis or storm; E11.65 Type 2 diabetes mellitus with hyperglycemia; Z79.84 Long term (current) use of oral hypoglycemic drugs; Z79.52 Long term (current) use of systemic steroids; Z88.8 Allergy status to other drugs, medicaments and biological substances; Z79.4 Long term (current) use of insulin; Z98.890 Other specified postprocedural states; Z87.891 Personal history of nicotine dependence; Z45.2 Encounter for adjustment and management of vascular access device
CPT/HCPCS: 0241U; 36415; 70450; 70450-26; 71045; 71045-26; 74177; 74177-26; 80048; 80053; 80197; 80202; 81001; 81003; 82306; 82533; 82550; 82607; 82746; 82947; 83605; 83735; 83930; 83935; 84100; 84295; 84300; 84439; 84443; 84481; 84484; 85007; 85025; 85027; 85610; 86140; 86850; 86870; 86900; 86901; 87040; 87045; 87046; 87641; 87899; 92610-GN; 93005; 94667; 94668; 94761; 97110-GP; 97112-GP; 97116-GP; 97162-GP; 97530-GP; 97597-GP; 99223; 99232; 99233; 99239; 99285; 99285-25; A9270-GY; J0692; J0696; J1720; J1815; J1815-GY; J2405; J2543; J2997; J3372; J3411; J3475; J3480; J3490; J7030; J7040; J7507; J7512

== ENCOUNTER 2024-12-29 17:41 | Emergency (ER) | payer MEDICAID ==
[2024-12-29] MEDS ORDERED: Sodium Chloride 0.9% 10 ML Syringe FLUSH PRN (18:00)
[2024-12-29 18:07] LABS: BASOPHILS ABSOLUTE AUTO 0.0 K/mm3 (0.0-0.2); BASOPHILS PERCENT AUTO 0.0 % (0.0-1.0); EOSINOPHILS ABSOLUTE AUTO 0.0 K/mm3 (0.0-0.4); EOSINOPHILS PERCENT AUTO 0.0 % (0.0-6.0); IMMATURE GRAN ABSOLUTE AUTO 0.02 K/mm3 (0.00-0.05); IMMATURE GRAN PERCENT AUTO 0.6 % (0.0-0.4); LYMPHOCYTES ABSOLUTE AUTO 1.2 K/mm3 (1.0-4.8); LYMPHOCYTES PERCENT AUTO 34.2 % (24.0-44.0); MEAN PLATELET VOLUME 10.0 fl (9.4-12.4); MONOCYTES ABSOLUTE AUTO 0.2 K/mm3 (0.0-0.8); MONOCYTES PERCENT AUTO 5.5 % (0.0-8.0); NEUTROPHILS ABSOLUTE AUTO 2.1 K/mm3 (1.8-7.7); NEUTROPHILS PERCENT AUTO 59.7 % (41.0-71.0); NRBC ABSOLUTE 0.03 (0.00-0.02); NRBC PERCENT 0.9 % (0.0-0.2); PLATELET COUNT,PLT 55 K/mm3 (150-400); RED BLOOD CELL COUNT 2.17 M/mm3 (4.52-5.90); WHITE BLOOD CELL COUNT,WBC 3.48 K/mm3 (3.9-11.3)
[2024-12-29 18:14] LABS: INR 1.3
[2024-12-29 18:15] LABS: PTT,PARTIAL THROMBOPLSTIN TIME 25.6 SECONDS (21.7-31.4)
[2024-12-29 18:21] LABS: ALANINE AMINOTRANSFERASE,ALT 19.0 U/L (16-63); ASPARTATE AMNIOTRANSFERASE,AST 34.0 U/L (15-37); BILIRUBIN TOTAL 0.8 mg/dL (0.2-1.0); BLOOD UREA NITROGEN,BUN 18.0 mg/dL (7-18); CHLORIDE,CL 101.0 mEq/L (98-107); CREATININE 1.0 mg/dL (0.7-1.3); EST CRCL DRUG DOSING (CG) 92.69 mL/min; ESTIMATED GFR 89.0 mL/min (>60); GLUCOSE RANDOM 158.0 mg/dL (70-99); POTASSIUM,K 3.7 mEq/L (3.5-5.1); SODIUM,NA 138.0 mEq/L (136-145)
[2024-12-29 18:48] LABS: A/G RATIO 1.0 (1-2); CARBON DIOXIDE,CO2 20.0 mEq/L (21-32); PROTEIN TOTAL,TP 5.4 g/dl (6.4-8.2); TROPONIN I HIGH SENSITIVITY 25.0 pg/mL (<=76)
[2024-12-29 19:14] LABS: LACTIC ACID 7.0 mmol/L (0.4-2.0)
[2024-12-29 22:09] VITALS: BP 106/81; PULSE 98
== END 2024-12-29 22:08 ==
LOC: JD.ED 17:41
DX: A41.9 Sepsis, unspecified organism (principal); D46.9 Myelodysplastic syndrome, unspecified; D89.813 Graft-versus-host disease, unspecified; I10 Essential (primary) hypertension; E11.9 Type 2 diabetes mellitus without complications; Z79.899 Other long term (current) drug therapy; Z79.84 Long term (current) use of oral hypoglycemic drugs; Z79.4 Long term (current) use of insulin; Z91.048 Other nonmedicinal substance allergy status
CPT/HCPCS: 36415; 71045; 80053; 83605; 83735; 83880; 84484; 85025; 85610; 85730; 86850; 86870; 86900; 86901; 87040; 93005; 96361; 96365; 99285; J2543; J7030; 93010